=== PATIENT | female | born 1985 | race Caucasian/White ===

== ENCOUNTER 2016-11-22 04:21 | Emergency (ER) | payer OTHER ==
[2016-11-22 07:01] LABS: BASO # 0.2 K/mm3 (0.0-0.2); BASO % 1.7 % (0.0-1.0); EOS # 0.3 K/mm3 (0.0-0.50); EOS % 2.5 % (0.0-3.0); LARGE UNSTAINED CELL # 0.2 K/mm3 (0.0-0.4); LYMPH # 3.4 K/mm3 (1.5-4.5); LYMPH % 25.9 % (24.0-44.0); MEAN CORPUSCULAR HEMOGLOBIN 30.7 pg (27.0-33.0); MEAN CORPUSCULAR VOLUME 90.3 fl (80.0-96.0); MONO # 0.5 K/mm3 (0.0-0.8); MONO % 4.3 % (0.0-5.0); NEUTROPHILS # 7.7 K/mm3 (1.8-7.7); NEUTROPHILS % 63.6 % (36.0-66.0); PLATELET COUNT, AUTOMATED 372 k/mm3 (150-450); RED CELL DISTRIBUTION WIDTH 12.7 % (11.5-14.5); WHITE BLOOD COUNT 12.1 K/mm3 (4.0-10.0)
[2016-11-22 07:05] LABS: CONTROL LINE HCG INT CTR LINE PRESENT
[2016-11-22 07:12] LABS: ALBUMIN 3.8 GM/DL (3.2-5.2); ALKALINE PHOSPHATASE 84 U/L (45-117); ALT/SGPT 24 U/L (12-78); AMYLASE 43 U/L (25-115); ANION GAP 7 MEQ/L (8-16); AST/SGOT 14 U/L (15-37); BILIRUBIN,DIRECT < 0.1 MG/DL (0.0-0.2); BILIRUBIN,TOTAL 0.3 MG/DL (0.2-1.0); BLOOD UREA NITROGEN 13 MG/DL (7-18); CALCIUM LEVEL 8.9 MG/DL (8.5-10.1); CARBON DIOXIDE LEVEL 27 MEQ/L (21-32); CHLORIDE LEVEL 109 MEQ/L (98-107); CREATININE FOR GFR 0.73 MG/DL (0.55-1.02); GLOMERULAR FILTRATION RATE > 60.0 (>60); GLUCOSE, FASTING 89 MG/DL (70-105); SODIUM LEVEL 143 MEQ/L (136-145)
--- NOTE | 2016-11-22 08:51 | EDDOCDS ---
Physician Documentation [facility] Name: Aleida Oliva Age: 31 yrs Sex: Female : 1985 Arrival Date: 11/22/2016 Time: 04:21 Bed 9 Private MD: Gerda Henrandez NP Disposition: 11/22 08:40 I have independently interviewed and examined the patient, and I agree with the br1 investigation, diagnosis and treatment plan as documented by the Resident. Disposition: 11/22/16 08:26 Discharged to Home/Self Care. Impression: Nausea and vomiting. - Condition is Stable. - Discharge Instructions: Clear Liquid Diet, [id number]. - Medication Reconciliation, Local Pharmacy Hours form. - Follow up: Gerda Hernandez; When: Call to arrange an appointment; Reason: Recheck today's complaints, Continuance of care. - Problem is new. - Symptoms have improved. - Notes: You were evaluated in the emergency department for nausea and vomiting. Your laboratory results report no acute changes. Your urine wasnegative. Please consume clear fluids and follow the BRAT diet. Please schedule an appointment with Gerda Hernandez at your soonest convenience to discuss today's complaints. Historical: - Allergies: PENICILLINS (Hives); - Home Meds: 1. levothyroxine 50 mcg Oral cap 1 cap once daily - PMHx: Thyroid problem; - PSHx: none; - Social history: Smoking status: Patient states was never smoker of tobacco. No barriers to communication noted, The patient speaks fluent German, Speaks appropriately for age. - Family history: Not pertinent. - : The pt / caregiver states he / she is not on anticoagulants. Home medication list is obtained from the patient. - Exposure Risk Screening:: None identified. 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 8 in. (172.72 cm); 07:16 BP 137 / 89; Pulse 73; Resp 16; Pulse Ox 98% on R/A; Pain 4/10; dwg 08:36 BP 131 / 89; Pulse 80; Resp 17; Temp 98.1(O); Pulse Ox 99% on R/A; lr2 04:54 Body Mass Index 38.01 (113.40 kg, 172.72 cm) cz MDM: 06:26 [facility] Payment Agreement was scanned into [email or web address] and attached to record. hs2 06:40 Undress patient appropriately for examination ordered. oct 06:40 IV Saline Lock ordered. oct 06:41 Amylase Ordered. EDMS 06:41 Basic Metabolic Profile Ordered. EDMS 06:41 CBC with Diff Ordered. EDMS 06:41 HCG,Serum Qualitative Ordered. EDMS 06:41 Lipase Ordered. EDMS 06:41 Liver Profile Ordered. EDMS 06:41 NOTHING BY MOUTH+DIET ordered. EDMS 06:58 Financial registration complete. hs2 07:11 Urinalysis Ordered. EDMS 07:11 Urine Culture Ordered. EDMS 07:17 Ondansetron 4 mg IVP once ordered. jo4 07:17 Amylase Reviewed. jo4 07:18 Basic Metabolic Profile Reviewed. jo4 07:18 CBC with Diff Reviewed. jo4 07:19 Liver Profile Reviewed. jo4 07:19 HCG,Serum Qualitative Reviewed. jo4 07:19 Lipase Reviewed. jo4 08:25 Urinalysis Reviewed. jo4 08:40 ED course: Seen with resident, agree with findings. Complains of epigastric abdominal br1 pain, nausea, vomiting overnight, now resolved. Denies any further complaints now in ED. Feels better, wishes DC home. Declines antiemetic prescription. Will follow up with PCP, encourage clear liquids, advance diet as tolerated. Patient agrees with plan.. Administered Medications: 07:22 Not Given (Patient Refused): Ondansetron 4 mg IVP once dwg Signatures: Dispatcher MedHo EDSlava Man RN RN dwg Newman, Jill New, RN RN jan Zecher, Calvin, RN RN cz Roggie, Brian, MD MD brTamie Mobley RN RN Jeri Cortes, DO jo4 Laverne Nolasco, Reg Reg hs2 The chart was reviewed and I authenticate all verbal orders and agree with the evaluation and treatment provided.Attachments: 06:26 [facility] Payment Agreement hs2 MTDD
--- NOTE | 2016-11-22 08:51 | EDDOCDS ---
Nurse's Notes [facility] Name: Aleida Oliva Age: 31 yrs Sex: Female : 1985 Arrival Date: 11/22/2016 Time: 04:21 Bed 9 Private MD: Gerda Hernandez NP Diagnosis: Nausea and vomiting Presentation: 11/22 04:51 Presenting complaint: Patient states: she has had stomach pain since 2200 last night cz c/o weakness and shakiness ,loose stools. pt also states has a red spot on left lateral neck that is real itchy has been there for about a week. Risk factors: the patient reports no vaginal bleeding. Adult Sepsis Screening: The patient does not have new or worsening altered mentation. Patient's respiratory rate is less than 22. Systolic blood pressure is greater than 100. Patient has a qSOFA score of 0- Negative Sepsis Screen. Suicide/Homicide risk assessment- the patient denies having any suicidal and/or homicidal ideations and does not present with any other emotional, behavioral or mental health complaints. Status: Patient is not a service line layer or dependent. Transition of care: patient was not received from another setting of care. 04:51 Acuity: NELDA Level 3 cz 04:51 Method Of Arrival: Walkin/Carried/Asstd cz Triage Assessment: 04:54 General: Appears uncomfortable. Pain: Location: abdomen Pain currently is 8 out of 10 cz on a pain scale. At worst was 10 out of 10 on a pain scale. HIV screening NA for this visit Offered previously. 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 levothyroxine 50 mcg Oral cap 1 cap once daily - PMHx: Thyroid problem; - PSHx: none; - Social history: Smoking status: Patient states was never smoker of tobacco. No barriers to communication noted, The patient speaks fluent Armenian, Speaks appropriately for age. - Family history: Not pertinent. - : The pt / caregiver states he / she is not on anticoagulants. Home medication list is obtained from the patient. - Exposure Risk Screening:: None identified. Screenin:43 Screening information is obtained from the patient. Fall risk: No risks identified. ko2 Assistance ADL's: requires no assistance with activities of daily living. Abuse/DV Screen: The patient / caregiver reports he/she is: not in a situation that causes fear, pain or injury. Nutritional screening: No deficits noted. Advance Directives: Currently, there is no health care proxy. There is no active DNR order. There is no living will. There is no Power of Occupational Physician. home support is adequate. Assessment: 06:20 General: Appears in no apparent distress, comfortable, Behavior is appropriate for age, ko2 cooperative. Pain: Location: abdomen. Neurological: Level of Consciousness is awake, alert. Respiratory: Airway is patent Respiratory effort is even, unlabored. GI: Abdomen is non- distended obese, Bowel sounds present X 4 quads. Abd is soft and non tender. Derm: Skin is normal. 07:14 General: Appears in no apparent distress, comfortable, Behavior is cooperative, dwg pleasant, Report received from Tamie Salcedo RN, awake and alert, visiting with family member, ''a little'' mid to upper abdominal pain, states feeling better since meds. VSS.. Pain: Location: umbilical area, right upper quadrant and left upper quadrant Pain currently is 4 out of 10 on a pain scale. Neurological: Level of Consciousness is awake, alert, Oriented to person, place, time. Respiratory: Airway is patent Respiratory effort is even, unlabored, Respiratory pattern is regular, symmetrical, Breath sounds are clear bilaterally. GI: Abdomen is non- distended obese, Bowel sounds present X 4 quads. Abd is soft and non tender X 4 quads. 08:49 General: SL DC'ed. [facility] Vital Signs: 04:54 BP 147 / 91; Pulse 82; Resp 16; Temp 99.2(T); Pulse Ox 98% on R/A; Weight 113.4 kg; cz Height 5 ft. 8 in. (172.72 cm); 07:16 BP 137 / 89; Pulse 73; Resp 16; Pulse Ox 98% on R/A; Pain 4/10; dwg 08:36 BP 131 / 89; Pulse 80; Resp 17; Temp 98.1(O); Pulse Ox 99% on R/A; lr2 04:54 Body Mass Index 38.01 (113.40 kg, 172.72 cm) Vitals: 04:54 Log In Time: November 22, 2016 at 04:21. ED Course: 04:22 Patient visited by Raghu Gonsalez Reg. pm4 04:22 Gerda Hernandez is Private Physician. pm4 04:22 Patient moved to Waiting pm4 04:45 Patient moved to Triage 1 cz 04:53 Triage Initiated cz 04:57 Patient moved to Pre RCE cz 06:07 Tamie Salcedo,RN is Primary Nurse. ml3 06:07 Patient moved to 9 ml3 06:16 Patient visited by Tamie Salcedo,RADHA. ko2 06:26 [facility] [place] Agreement was scanned into [employer] and attached to record. hs2 06:44 Amylase Sent. mgs 06:44 Basic Metabolic Profile Sent. mgs 06:44 CBC with Diff Sent. mgs 06:44 HCG,Serum Qualitative Sent. mgs 06:44 Lipase Sent. mgs 06:44 Liver Profile Sent. mgs 06:44 Inserted saline lock: 20 gauge in left antecubital area and blood collected. The mgs patient tolerated the procedure well. 06:48 Jeri Forman DO [facility] jo4 06:49 Michael Liu MD is Attending Physician. jo4 06:57 Patient visited by Jeri Forman DO. jo4 06:57 Patient visited by Jeri Forman DO. jo4 07:17 Patient visited by Slava Parker RN. dwg 07:22 Urine Culture Sent. dwg 07:22 Urinalysis Sent. dwg 07:58 Patient visited by Michael Liu MD. br1 08:26 Gerda Hernandez is Referral Physician. jo4 08:38 Patient visited by Nargis Best. lr2 08:48 No procedures done that require assistance. dwg 08:49 The patient / caregiver is instructed regarding the plan of care and ED course. dwg 08:50 Patient visited by Slava Parker, RADHA. dwg Administered Medications: 07:22 Not Given (Patient Refused): Ondansetron 4 mg IVP once dwg Order Results: Lab Order: Amylase; SPEC'M 11/22/16 06:43 Test: AMYLASE; Value: 43; Range: 25-115; Units: U/L; Status: F Lab Order: Basic Metabolic Profile; SPEC'M 11/22/16 06:43 Test: GLUCOSE, FASTING; Value: 89; Range: 70-105; Units: MG/DL; Status: F Test: BLOOD UREA NITROGEN; Value: 13; Range: 7-18; Units: MG/DL; Status: F Test: CREATININE FOR GFR; Value: 0.73; Range: 0.55-1.02; Units: MG/DL; Status: F Test: SODIUM LEVEL; Range: 136-145; Units: MEQ/L; Status: I Test: POTASSIUM SERUM; Range: 3.5-5.1; Units: MEQ/L; Status: I Test: CHLORIDE LEVEL; Range: 98-107; Units: MEQ/L; Status: I Test: CARBON DIOXIDE LEVEL; Range: 21-32; Units: MEQ/L; Status: I Test: ANION GAP; Range: 8-16; Units: MEQ/L; Status: I Test: CALCIUM LEVEL; Range: 8.5-10.1; Units: MG/DL; Status: I Test: GLOMERULAR FILTRATION RATE; Value: > 60.0; Range: >60; Status: F Test: SODIUM LEVEL; Value: 143; Range: 136-145; Units: MEQ/L; Status: F Test: POTASSIUM SERUM; Value: 4.0; Range: 3.5-5.1; Units: MEQ/L; Status: F Test: CHLORIDE LEVEL; Value: 109; Range: 98-107; Abnormal: Above high normal; Units: MEQ/L; Status: F Test: CARBON DIOXIDE LEVEL; Value: 27; Range: 21-32; Units: MEQ/L; Status: F Test: ANION GAP; Value: 7; Range: 8-16; Abnormal: Below low normal; Units: MEQ/L; Status: F Test: CALCIUM LEVEL; Value: 8.9; Range: 8.5-10.1; Units: MG/DL; Status: F Test Note: ; Units are mL/min/1.73 m2 Chronic Kidney Disease Staging per NKF: Stage I & II GFR >=60 Normal to Mildly Decreased Stage III GFR 30-59 Moderately Decreased Stage IV GFR 15-29 Severely Decreased Stage V GFR <15 Very Little GFR Left ESRD GFR <15 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 Lab Order: CBC with Diff; SPEC'M 11/22/16 06:43 Test: WHITE BLOOD COUNT; Value: 12.1; Range: 4.0-10.0; Abnormal: Above high normal; Units: K/mm3; Status: F Test: RED BLOOD COUNT; Value: 4.60; Range: 4.00-5.40; Units: M/mm3; Status: F Test: HEMOGLOBIN; Value: 14.2; Range: 12.0-16.0; Units: g/dl; Status: F Test: HEMATOCRIT; Value: 41.6; Range: 36.0-47.0; Units: %; Status: F Test: MEAN CORPUSCULAR VOLUME; Value: 90.3; Range: 80.0-96.0; Units: fl; Status: F Test: MEAN CORPUSCULAR HEMOGLOBIN; Value: 30.7; Range: 27.0-33.0; Units: pg; Status: F Test: MEAN CORPUSCULAR HGB CONC; Value: 34.0; Range: 32.0-36.5; Units: g/dl; Status: F Test: RED CELL DISTRIBUTION WIDTH; Value: 12.7; Range: 11.5-14.5; Units: %; Status: F Test: PLATELET COUNT, AUTOMATED; Value: 372; Range: 150-450; Units: k/mm3; Status: F Test: NEUTROPHILS %; Value: 63.6; Range: 36.0-66.0; Units: %; Status: F Test: LYMPH %; Value: 25.9; Range: 24.0-44.0; Units: %; Status: F Test: MONO %; Value: 4.3; Range: 0.0-5.0; Units: %; Status: F Test: EOS %; Value: 2.5; Range: 0.0-3.0; Units: %; Status: F Test: BASO %; Value: 1.7; Range: 0.0-1.0; Abnormal: Above high normal; Units: %; Status: F Test: LARGE UNSTAINED CELL %; Value: 2.0; Range: 0.0-4.0; Units: %; Status: F Test: NEUTROPHILS #; Value: 7.7; Range: 1.8-7.7; Units: K/mm3; Status: F Test: LYMPH #; Value: 3.4; Range: 1.5-4.5; Units: K/mm3; Status: F Test: MONO #; Value: 0.5; Range: 0.0-0.8; Units: K/mm3; Status: F Test: EOS #; Value: 0.3; Range: 0.0-0.50; Units: K/mm3; Status: F Test: BASO #; Value: 0.2; Range: 0.0-0.2; Units: K/mm3; Status: F Test: LARGE UNSTAINED CELL #; Value: 0.2; Range: 0.0-0.4; Units: K/mm3; Status: F Lab Order: HCG,Serum Qualitative; [facility]' 11/22/16 06:43 Test: HCG, SERUM QUALITATIVE; Value: NEGATIVE; Range: NEGATIVE; Status: F Lab Order: Lipase; [facility] 11/22/16 06:43 Test: LIPASE; Value: 115; Range: 73-393; Units: U/L; Status: F Lab Order: Liver Profile; [facility] 11/22/16 06:43 Test: AST/SGOT; Value: 14; Range: 15-37; Abnormal: Below low normal; Units: U/L; Status: F Test: ALT/SGPT; Value: 24; Range: 12-78; Units: U/L; Status: F Test: ALKALINE PHOSPHATASE; Value: 84; Range: 45-117; Units: U/L; Status: F Test: BILIRUBIN,TOTAL; Value: 0.3; Range: 0.2-1.0; Units: MG/DL; Status: F Test: BILIRUBIN,DIRECT; Value: < 0.1; Range: 0.0-0.2; Units: MG/DL; Status: F Test: TOTAL PROTEIN; Value: 8.0; Range: 6.4-8.2; Units: GM/DL; Status: F Test: ALBUMIN; Value: 3.8; Range: 3.2-5.2; Units: GM/DL; Status: F Test: ALBUMIN/GLOBULIN RATIO; Value: 0.90; Range: 1.00-1.93; Abnormal: Below low normal; Status: F Lab Order: Urinalysis; [facility] 11/22/16 07:22 Test: APPEARANCE, URINE; Value: CLEAR; Range: CLEAR; Status: F Test: COLOR, URINE; Value: YELLOW; Range: YELLOW; Status: F Test: PH,URINE; Value: 5.0; Range: 5.0-9.0; Units: UNITS; Status: F Test: SPECIFIC GRAVITY URINE AUTO; Value: 1.025; Range: 1.002-1.035; Status: F Test: PROTEIN, URINE AUTO; Value: NEGATIVE; Range: NEGATIVE; Units: mg/dL; Status: F Test: GLUCOSE, URINE (UA) AUTO; Value: NEGATIVE; Range: NEGATIVE; Units: mg/dL; Status: F Test: KETONE, URINE AUTO; Value: NEGATIVE; Range: NEGATIVE; Units: mg/dL; Status: F Test: UROBILINOGEN, URINE AUTO; Value: 0.2; Range: 0.0-2.0; Units: mg/dL; Status: F Test: BILIRUBIN, URINE AUTO; Value: NEGATIVE; Range: NEGATIVE; Status: F Test: NITRITE, URINE AUTO; Value: NEGATIVE; Range: NEGATIVE; Status: F Test: LEUKOCYTE ESTERASE, URINE AUTO; Value: NEGATIVE; Range: NEGATIVE; Status: F Test: BLOOD, URINE BLOOD; Value: NEGATIVE; Range: NEGATIVE; Status: F Test: WBC, URINE AUTO; Value: 0; Range: 0-3; Units: /HPF; Status: F Test: RBC, URINE AUTO; Value: 2; Range: 0-3; Units: /HPF; Status: F Test: BACTERIA, URINE AUTO; Value: NEGATIVE; Range: NEGATIVE; Status: F Test: SQUAMOUS EPITHELIAL CELL UR AU; Value: 4; Range: 0-6; Units: /HPF; Status: F Test: MUCUS, URINE; Value: SMALL; Range: NEGATIVE; Status: F Test: HYALINE CAST, URINE AUTO; Value: 0; Range: 0-1; Units: /LPF; Status: F Outcome: 08:26 Discharge ordered by Provider. jo4 08:48 Discharge Assessment: Patient awake, alert and oriented x 3. No cognitive and/or dwg functional deficits noted. Patient verbalized understanding of disposition instructions. patient administered narcotics - no. The following High Risk Discharge criteria are identified: None. Discharged to home ambulatory, with family. Condition: good Condition: stable Condition: improved. 08:48 No special radiology studies were completed. Property sent home with patient. [facility] 08:50 Patient left the ED. dwg Signatures: Parker, SlavaRADHA fine RN, Calvin, RN RN cz Sailaja, ClariIrvingShobha, Braiding Machine Operator Unit ml3 Michael Liu MD MD br1 Tamie Salcedo RN RN ko2 Viral Lipscomb,RN RN mgs Jeri Forman, DO jo4 Laverne Nolasco, Reg Reg hs2 Raghu Gonsalez, Reg Reg pm4 Nargis Best lr2 Corrections: (The following items were deleted from the chart) 04:57 04:51 Presenting complaint: Patient states: she has had stomach pain since 2199 last cz night c/o weakness and shakiness ,loose stools cz MTDD
--- NOTE | 2016-11-24 09:51 | EDDOCDS ---
Nurse's Notes [facility] Name: Aleida Oliva Age: 31 yrs Sex: Female : 1985 Arrival Date: 11/22/2016 Time: 04:21 Bed 9 Private MD: Gerda Hernandez NP Diagnosis: Nausea and vomiting Presentation: 11/22 04:51 Presenting complaint: Patient states: she has had stomach pain since 2200 last night cz c/o weakness and shakiness ,loose stools. pt also states has a red spot on left lateral neck that is real itchy has been there for about a week. Risk factors: the patient reports no vaginal bleeding. Adult Sepsis Screening: The patient does not have new or worsening altered mentation. Patient's respiratory rate is less than 22. Systolic blood pressure is greater than 100. Patient has a qSOFA score of 0- Negative Sepsis Screen. Suicide/Homicide risk assessment- the patient denies having any suicidal and/or homicidal ideations and does not present with any other emotional, behavioral or mental health complaints. Status: Patient is not a services host or dependent. Transition of care: patient was not received from another setting of care. 04:51 Acuity: NELDA Level 3 cz 04:51 Method Of Arrival: Walkin/Carried/Asstd cz Triage Assessment: 04:54 General: Appears uncomfortable. Pain: Location: abdomen Pain currently is 8 out of 10 cz on a pain scale. At worst was 10 out of 10 on a pain scale. HIV screening NA for this visit Offered previously. 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 levothyroxine 50 mcg Oral cap 1 cap once daily - PMHx: Thyroid problem; - PSHx: none; - Social history: Smoking status: Patient states was never smoker of tobacco. No barriers to communication noted, The patient speaks fluent Greek, Speaks appropriately for age. - Family history: Not pertinent. - : The pt / caregiver states he / she is not on anticoagulants. Home medication list is obtained from the patient. - Exposure Risk Screening:: None identified. Screenin:43 Screening information is obtained from the patient. Fall risk: No risks identified. ko2 Assistance ADL's: requires no assistance with activities of daily living. Abuse/DV Screen: The patient / caregiver reports he/she is: not in a situation that causes fear, pain or injury. Nutritional screening: No deficits noted. Advance Directives: Currently, there is no health care proxy. There is no active DNR order. There is no living will. 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 home support is adequate. Assessment: 06:20 General: Appears in no apparent distress, comfortable, Behavior is appropriate for age, ko2 cooperative. Pain: Location: abdomen. Neurological: Level of Consciousness is awake, alert. Respiratory: Airway is patent Respiratory effort is even, unlabored. GI: Abdomen is non- distended obese, Bowel sounds present X 4 quads. Abd is soft and non tender. Derm: Skin is normal. 07:14 General: Appears in no apparent distress, comfortable, Behavior is cooperative, dwg pleasant, Report received from Tamie Salcedo RN, awake and alert, visiting with family member, ''a little'' mid to upper abdominal pain, states feeling better since meds. VSS.. Pain: Location: umbilical area, right upper quadrant and left upper quadrant Pain currently is 4 out of 10 on a pain scale. Neurological: Level of Consciousness is awake, alert, Oriented to person, place, time. Respiratory: Airway is patent Respiratory effort is even, unlabored, Respiratory pattern is regular, symmetrical, Breath sounds are clear bilaterally. GI: Abdomen is non- distended obese, Bowel sounds present X 4 quads. Abd is soft and non tender X 4 quads. 08:49 General: SL DC'ed. [facility] Vital Signs: 04:54 BP 147 / 91; Pulse 82; Resp 16; Temp 99.2(T); Pulse Ox 98% on R/A; Weight 113.4 kg; cz Height 5 ft. 8 in. (172.72 cm); 07:16 BP 137 / 89; Pulse 73; Resp 16; Pulse Ox 98% on R/A; Pain 4/10; dwg 08:36 BP 131 / 89; Pulse 80; Resp 17; Temp 98.1(O); Pulse Ox 99% on R/A; lr2 04:54 Body Mass Index 38.01 (113.40 kg, 172.72 cm) Vitals: 04:54 Log In Time: November 22, 2016 at 04:21. cz ED Course: 04:22 Patient visited by Raghu Gonsalez Reg. pm4 04:22 Gerda Hernandez is Private Physician. pm4 04:22 Patient moved to Waiting pm4 04:45 Patient moved to Triage 1 cz 04:53 Triage Initiated cz 04:57 Patient moved to Pre RCE cz 06:07 Tamie Salcedo,RN is Primary Nurse. ml3 06:07 Patient moved to 9 ml3 06:16 Patient visited by Tamie Salcedo,RADHA. ko2 06:26 [facility] Payment Agreement was scanned into [employer] and attached to record. hs2 06:44 Amylase Sent. mgs 06:44 Basic Metabolic Profile Sent. mgs 06:44 CBC with Diff Sent. mgs 06:44 HCG,Serum Qualitative Sent. mgs 06:44 Lipase Sent. mgs 06:44 Liver Profile Sent. mgs 06:44 Inserted saline lock: 20 gauge in left antecubital area and blood collected. The mgs patient tolerated the procedure well. 06:48 [facility] jo4 06:49 Michael Liu MD is Attending Physician. jo4 06:57 Patient visited by Jeri Forman DO. jo4 06:57 Patient visited by Jeri Forman DO. jo4 07:17 Patient visited by Slava Parker RN. dwg 07:22 Urine Culture Sent. dwg 07:22 Urinalysis Sent. dwg 07:58 Patient visited by Michael Liu MD. br1 08:26 Gerda Hernandez is Referral Physician. jo4 08:38 Patient visited by Nargis Best. lr2 08:48 No procedures done that require assistance. dwg 08:49 The patient / caregiver is instructed regarding the plan of care and ED course. dwg 08:50 Patient visited by Slava Parker, RADHA. dwg 14:31 T-Sheet-- Draft Copy was scanned into [employer] and attached to record. gb Administered Medications: 07:22 Not Given (Patient Refused): Ondansetron 4 mg IVP once dwg Order Results: Lab Order: Amylase; SPEC'M 11/22/16 06:43 Test: AMYLASE; Value: 43; Range: 25-115; Units: U/L; Status: F Lab Order: Basic Metabolic Profile; SPEC'M 11/22/16 06:43 Test: GLUCOSE, FASTING; Value: 89; Range: 70-105; Units: MG/DL; Status: F Test: BLOOD UREA NITROGEN; Value: 13; Range: 7-18; Units: MG/DL; Status: F Test: CREATININE FOR GFR; Value: 0.73; Range: 0.55-1.02; Units: MG/DL; Status: F Test: SODIUM LEVEL; Range: 136-145; Units: MEQ/L; Status: I Test: POTASSIUM SERUM; Range: 3.5-5.1; Units: MEQ/L; Status: I Test: CHLORIDE LEVEL; Range: 98-107; Units: MEQ/L; Status: I Test: CARBON DIOXIDE LEVEL; Range: 21-32; Units: MEQ/L; Status: I Test: ANION GAP; Range: 8-16; Units: MEQ/L; Status: I Test: CALCIUM LEVEL; Range: 8.5-10.1; Units: MG/DL; Status: I Test: GLOMERULAR FILTRATION RATE; Value: > 60.0; Range: >60; Status: F Test: SODIUM LEVEL; Value: 143; Range: 136-145; Units: MEQ/L; Status: F Test: POTASSIUM SERUM; Value: 4.0; Range: 3.5-5.1; Units: MEQ/L; Status: F Test: CHLORIDE LEVEL; Value: 109; Range: 98-107; Abnormal: Above high normal; Units: MEQ/L; Status: F Test: CARBON DIOXIDE LEVEL; Value: 27; Range: 21-32; Units: MEQ/L; Status: F Test: ANION GAP; Value: 7; Range: 8-16; Abnormal: Below low normal; Units: MEQ/L; Status: F Test: CALCIUM LEVEL; Value: 8.9; Range: 8.5-10.1; Units: MG/DL; Status: F Test Note: ; Units are mL/min/1.73 m2 Chronic Kidney Disease Staging per NKF: Stage I & II GFR >=60 Normal to Mildly Decreased Stage III GFR 30-59 Moderately Decreased Stage IV GFR 15-29 Severely Decreased Stage V GFR <15 Very Little GFR Left ESRD GFR <15 on [employer] INSPECTOR Lab Order: CBC with Diff; SPEC'M 11/22/16 06:43 Test: WHITE BLOOD COUNT; Value: 12.1; Range: 4.0-10.0; Abnormal: Above high normal; Units: K/mm3; Status: F Test: RED BLOOD COUNT; Value: 4.60; Range: 4.00-5.40; Units: M/mm3; Status: F Test: HEMOGLOBIN; Value: 14.2; Range: 12.0-16.0; Units: g/dl; Status: F Test: HEMATOCRIT; Value: 41.6; Range: 36.0-47.0; Units: %; Status: F Test: MEAN CORPUSCULAR VOLUME; Value: 90.3; Range: 80.0-96.0; Units: fl; Status: F Test: MEAN CORPUSCULAR HEMOGLOBIN; Value: 30.7; Range: 27.0-33.0; Units: pg; Status: F Test: MEAN CORPUSCULAR HGB CONC; Value: 34.0; Range: 32.0-36.5; Units: g/dl; Status: F Test: RED CELL DISTRIBUTION WIDTH; Value: 12.7; Range: 11.5-14.5; Units: %; Status: F Test: PLATELET COUNT, AUTOMATED; Value: 372; Range: 150-450; Units: k/mm3; Status: F Test: NEUTROPHILS %; Value: 63.6; Range: 36.0-66.0; Units: %; Status: F Test: LYMPH %; Value: 25.9; Range: 24.0-44.0; Units: %; Status: F Test: MONO %; Value: 4.3; Range: 0.0-5.0; Units: %; Status: F Test: EOS %; Value: 2.5; Range: 0.0-3.0; Units: %; Status: F Test: BASO %; Value: 1.7; Range: 0.0-1.0; Abnormal: Above high normal; Units: %; Status: F Test: LARGE UNSTAINED CELL %; Value: 2.0; Range: 0.0-4.0; Units: %; Status: F Test: NEUTROPHILS #; Value: 7.7; Range: 1.8-7.7; Units: K/mm3; Status: F Test: LYMPH #; Value: 3.4; Range: 1.5-4.5; Units: K/mm3; Status: F Test: MONO #; Value: 0.5; Range: 0.0-0.8; Units: K/mm3; Status: F Test: EOS #; Value: 0.3; Range: 0.0-0.50; Units: K/mm3; Status: F Test: BASO #; Value: 0.2; Range: 0.0-0.2; Units: K/mm3; Status: F Test: LARGE UNSTAINED CELL #; Value: 0.2; Range: 0.0-0.4; Units: K/mm3; Status: F Lab Order: HCG,Serum Qualitative; [facility] 11/22/16 06:43 Test: HCG, SERUM QUALITATIVE; Value: NEGATIVE; Range: NEGATIVE; Status: F Lab Order: Lipase; [facility] 11/22/16 06:43 Test: LIPASE; Value: 115; Range: 73-393; Units: U/L; Status: F Lab Order: Liver Profile; [facility] 11/22/16 06:43 Test: AST/SGOT; Value: 14; Range: 15-37; Abnormal: Below low normal; Units: U/L; Status: F Test: ALT/SGPT; Value: 24; Range: 12-78; Units: U/L; Status: F Test: ALKALINE PHOSPHATASE; Value: 84; Range: 45-117; Units: U/L; Status: F Test: BILIRUBIN,TOTAL; Value: 0.3; Range: 0.2-1.0; Units: MG/DL; Status: F Test: BILIRUBIN,DIRECT; Value: < 0.1; Range: 0.0-0.2; Units: MG/DL; Status: F Test: TOTAL PROTEIN; Value: 8.0; Range: 6.4-8.2; Units: GM/DL; Status: F Test: ALBUMIN; Value: 3.8; Range: 3.2-5.2; Units: GM/DL; Status: F Test: ALBUMIN/GLOBULIN RATIO; Value: 0.90; Range: 1.00-1.93; Abnormal: Below low normal; Status: F Lab Order: Urinalysis; [facility] 11/22/16 07:22 Test: APPEARANCE, URINE; Value: CLEAR; Range: CLEAR; Status: F Test: COLOR, URINE; Value: YELLOW; Range: YELLOW; Status: F Test: PH,URINE; Value: 5.0; Range: 5.0-9.0; Units: UNITS; Status: F Test: SPECIFIC GRAVITY URINE AUTO; Value: 1.025; Range: 1.002-1.035; Status: F Test: PROTEIN, URINE AUTO; Value: NEGATIVE; Range: NEGATIVE; Units: mg/dL; Status: F Test: GLUCOSE, URINE (UA) AUTO; Value: NEGATIVE; Range: NEGATIVE; Units: mg/dL; Status: F Test: KETONE, URINE AUTO; Value: NEGATIVE; Range: NEGATIVE; Units: mg/dL; Status: F Test: UROBILINOGEN, URINE AUTO; Value: 0.2; Range: 0.0-2.0; Units: mg/dL; Status: F Test: BILIRUBIN, URINE AUTO; Value: NEGATIVE; Range: NEGATIVE; Status: F Test: NITRITE, URINE AUTO; Value: NEGATIVE; Range: NEGATIVE; Status: F Test: LEUKOCYTE ESTERASE, URINE AUTO; Value: NEGATIVE; Range: NEGATIVE; Status: F Test: BLOOD, URINE BLOOD; Value: NEGATIVE; Range: NEGATIVE; Status: F Test: WBC, URINE AUTO; Value: 0; Range: 0-3; Units: /HPF; Status: F Test: RBC, URINE AUTO; Value: 2; Range: 0-3; Units: /HPF; Status: F Test: BACTERIA, URINE AUTO; Value: NEGATIVE; Range: NEGATIVE; Status: F Test: SQUAMOUS EPITHELIAL CELL UR AU; Value: 4; Range: 0-6; Units: /HPF; Status: F Test: MUCUS, URINE; Value: SMALL; Range: NEGATIVE; Status: F Test: HYALINE CAST, URINE AUTO; Value: 0; Range: 0-1; Units: /LPF; Status: F Lab Order: Urine Culture; SPEC'M 11/22/16 07:22 Test: URINE CULTURE; Value: <EXTERNAL COMMENT eCWMed> FULL REPORT IN LAB NOTES (eCW and Medent).; Status: F Test: URINE CULTURE; Value: URINE CULTURE RESULT NO GROWTH CLINICAL SIGNIFICANCE 1 ORGANISM; Status: F Outcome: 08:26 Discharge ordered by Provider. jo4 08:48 Discharge Assessment: Patient awake, alert and oriented x 3. No cognitive and/or dwg functional deficits noted. Patient verbalized understanding of disposition instructions. patient administered narcotics - no. The following High Risk Discharge criteria are identified: None. Discharged to home ambulatory, with family. Condition: good Condition: stable Condition: improved. 08:48 No special radiology studies were completed. Property sent home with patient. [facility] 08:50 Patient left the ED. dwg Signatures: Slava Parker RN RN dwg Johnnie Sin RN RN cz July Rivers, Reg Reg gb Sailaja ClariIrvingShobha, Director [facility] ml3 Michael Liu MD MD br1 Tamie SalcedoRN RN ko2 Viral Lipscomb,RN RN mgs Jeri Forman DO DO jo4 Laverne Nolasco, Reg Reg hs2 Raghu Gonsalez, Reg Reg pm4 Nargis Best lr2 Corrections: (The following items were deleted from the chart) 04:57 04:51 Presenting complaint: Patient states: she has had stomach pain since 2200 last cz night c/o weakness and shakiness ,loose stools cz Chart Complete MTDD
--- NOTE | 2016-11-24 09:51 | EDDOCDS ---
Physician Documentation [facility] Name: Aleida Oliva Age: 31 yrs Sex: Female : 1985 Arrival Date: 11/22/2016 Time: 04:21 Bed 9 Private MD: Gerda Hernandez NP Disposition: 11/22 08:40 I have independently interviewed and examined the patient, and I agree with the br1 investigation, diagnosis and treatment plan as documented by the Resident. Disposition: 11/22/16 08:26 Discharged to Home/Self Care. Impression: Nausea and vomiting. - Condition is Stable. - Discharge Instructions: Clear Liquid Diet, [id number]. - Medication Reconciliation, Local Pharmacy Hours form. - Follow up: Gerda Hernandez; When: Call to arrange an appointment; Reason: Recheck today's complaints, Continuance of care. - Problem is new. - Symptoms have improved. - Notes: You were evaluated in the emergency department for nausea and vomiting. Your laboratory results report no acute changes. Your urine wasnegative. Please consume clear fluids and follow the BRAT diet. Please schedule an appointment with Gerda Hernandez at your soonest convenience to discuss today's complaints. Historical: - Allergies: PENICILLINS (Hives); - Home Meds: 1. levothyroxine 50 mcg Oral cap 1 cap once daily - PMHx: Thyroid problem; - PSHx: none; - Social history: Smoking status: Patient states was never smoker of tobacco. No barriers to communication noted, The patient speaks fluent Kinyarwanda, Speaks appropriately for age. - Family history: Not pertinent. - : The pt / caregiver states he / she is not on anticoagulants. Home medication list is obtained from the patient. - Exposure Risk Screening:: None identified. 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 8 in. (172.72 cm); 07:16 BP 137 / 89; Pulse 73; Resp 16; Pulse Ox 98% on R/A; Pain 4/10; dwg 08:36 BP 131 / 89; Pulse 80; Resp 17; Temp 98.1(O); Pulse Ox 99% on R/A; lr2 04:54 Body Mass Index 38.01 (113.40 kg, 172.72 cm) cz MDM: 06:26 [facility] Payment Agreement was scanned into [employer] and attached to record. hs2 06:40 Undress patient appropriately for examination ordered. oct 06:40 IV Saline Lock ordered. oct 06:41 Amylase Ordered. EDMS 06:41 Basic Metabolic Profile Ordered. EDMS 06:41 CBC with Diff Ordered. EDMS 06:41 HCG,Serum Qualitative Ordered. EDMS 06:41 Lipase Ordered. EDMS 06:41 Liver Profile Ordered. EDMS 06:41 NOTHING BY MOUTH+DIET ordered. EDMS 06:58 Financial registration complete. hs2 07:11 Urinalysis Ordered. EDMS 07:11 Urine Culture Ordered. EDMS 07:17 Ondansetron 4 mg IVP once ordered. jo4 07:17 Amylase Reviewed. jo4 07:18 Basic Metabolic Profile Reviewed. jo4 07:18 CBC with Diff Reviewed. jo4 07:19 Liver Profile Reviewed. jo4 07:19 HCG,Serum Qualitative Reviewed. jo4 07:19 Lipase Reviewed. jo4 08:25 Urinalysis Reviewed. jo4 08:40 ED course: Seen with resident, agree with findings. Complains of epigastric abdominal br1 pain, nausea, vomiting overnight, now resolved. Denies any further complaints now in ED. Feels better, wishes DC home. Declines antiemetic prescription. Will follow up with PCP, encourage clear liquids, advance diet as tolerated. Patient agrees with plan.. 14:31 T-Sheet-- Draft Copy was scanned into [employer] and attached to record. gb Administered Medications: 07:22 Not Given (Patient Refused): Ondansetron 4 mg IVP once dwg Signatures: Dispatcher [employer] EDMS Slava Parker RN RN dwg Newman, Jill New, RN RN jan Zecher, Calvin, RN RN cz Barnhardt, Gloria, Reg Reg gb Michael Liu MD MD br1 Tamie Salcedo RN RN ko2 Jeri Forman, DO jo4 Laverne Nolasco, Reg Reg hs2 The chart was reviewed and I authenticate all verbal orders and agree with the evaluation and treatment provided.Attachments: 06:26 [facility] Payment Agreement hs2 14:31 T-Sheet-- Draft Copy gb Chart Complete MTDD
--- NOTE | 2016-11-24 09:51 | EDDOCDS ---
Physician Documentation [facility] Name: Aleida Oliva Age: 31 yrs Sex: Female : 1985 Arrival Date: 11/22/2016 Time: 04:21 Bed 9 Private MD: Gerda Hernandez NP Disposition: 11/22 08:40 I have independently interviewed and examined the patient, and I agree with the br1 investigation, diagnosis and treatment plan as documented by the Resident. Disposition: 11/22/16 08:26 Discharged to Home/Self Care. Impression: Nausea and vomiting. - Condition is Stable. - Discharge Instructions: Clear Liquid Diet, [id number]. - Medication Reconciliation, Local Pharmacy Hours form. - Follow up: Gerda Hernandez; When: Call to arrange an appointment; Reason: Recheck today's complaints, Continuance of care. - Problem is new. - Symptoms have improved. - Notes: You were evaluated in the emergency department for nausea and vomiting. Your laboratory results report no acute changes. Your urine wasnegative. Please consume clear fluids and follow the BRAT diet. Please schedule an appointment with Gerda Hernandez at your soonest convenience to discuss today's complaints. Historical: - Allergies: PENICILLINS (Hives); - Home Meds: 1. levothyroxine 50 mcg Oral cap 1 cap once daily - PMHx: Thyroid problem; - PSHx: none; - Social history: Smoking status: Patient states was never smoker of tobacco. No barriers to communication noted, The patient speaks fluent Kinyarwanda, Speaks appropriately for age. - Family history: Not pertinent. - : The pt / caregiver states he / she is not on anticoagulants. Home medication list is obtained from the patient. - Exposure Risk Screening:: None identified. 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 8 in. (172.72 cm); 07:16 BP 137 / 89; Pulse 73; Resp 16; Pulse Ox 98% on R/A; Pain 4/10; dwg 08:36 BP 131 / 89; Pulse 80; Resp 17; Temp 98.1(O); Pulse Ox 99% on R/A; lr2 04:54 Body Mass Index 38.01 (113.40 kg, 172.72 cm) cz MDM: 06:26 [facility] Payment Agreement was scanned into [employer] and attached to record. hs2 06:40 Undress patient appropriately for examination ordered. oct 06:40 IV Saline Lock ordered. oct 06:41 Amylase Ordered. EDMS 06:41 Basic Metabolic Profile Ordered. EDMS 06:41 CBC with Diff Ordered. EDMS 06:41 HCG,Serum Qualitative Ordered. EDMS 06:41 Lipase Ordered. EDMS 06:41 Liver Profile Ordered. EDMS 06:41 NOTHING BY MOUTH+DIET ordered. EDMS 06:58 Financial registration complete. hs2 07:11 Urinalysis Ordered. EDMS 07:11 Urine Culture Ordered. EDMS 07:17 Ondansetron 4 mg IVP once ordered. jo4 07:17 Amylase Reviewed. jo4 07:18 Basic Metabolic Profile Reviewed. jo4 07:18 CBC with Diff Reviewed. jo4 07:19 Liver Profile Reviewed. jo4 07:19 HCG,Serum Qualitative Reviewed. jo4 07:19 Lipase Reviewed. jo4 08:25 Urinalysis Reviewed. jo4 08:40 ED course: Seen with resident, agree with findings. Complains of epigastric abdominal br1 pain, nausea, vomiting overnight, now resolved. Denies any further complaints now in ED. Feels better, wishes DC home. Declines antiemetic prescription. Will follow up with PCP, encourage clear liquids, advance diet as tolerated. Patient agrees with plan.. 14:31 T-Sheet-- Draft Copy was scanned into [employer] and attached to record. gb Administered Medications: 07:22 Not Given (Patient Refused): Ondansetron 4 mg IVP once dwg Signatures: Dispatcher [employer] EDMS Slava Parker RN RN dwg Newman, Jill New, RN RN jan Zecher, Calvin, RN RN cz Barnhardt, Gloria, Reg Reg gb Michael Liu MD MD br1 Tamie Salcedo RN RN ko2 Jeri Forman, DO jo4 Laverne Nolasco, Reg Reg hs2 The chart was reviewed and I authenticate all verbal orders and agree with the evaluation and treatment provided.Attachments: 06:26 [facility] Payment Agreement hs2 14:31 T-Sheet-- Draft Copy gb Chart Complete MTDD
== END 2016-11-22 08:50 | disposition home or self-care (01) ==
LOC: M ED 04:21
DX: R11.2 Nausea with vomiting, unspecified (principal); E07.9 Disorder of thyroid, unspecified; Z79.899 Other long term (current) drug therapy; Z88.0 Allergy status to penicillin

== ENCOUNTER → 2016-12-07 | Outpatient (REF) | payer BC, MEDICAID, OTHER ==
[2016-12-07 11:51] LABS: BASO # 0.1 K/mm3 (0.0-0.2); BASO % 0.7 % (0.0-1.0); EOS # 0.2 K/mm3 (0.0-0.50); EOS % 3.1 % (0.0-3.0); LARGE UNSTAINED CELL # 0.1 K/mm3 (0.0-0.4); LARGE UNSTAINED CELL % 1.6 % (0.0-4.0); LYMPH # 3.2 K/mm3 (1.5-4.5); LYMPH % 38.7 % (24.0-44.0); MEAN CORPUSCULAR HEMOGLOBIN 30.7 pg (27.0-33.0); MEAN CORPUSCULAR HGB CONC 33.9 g/dl (32.0-36.5); MEAN CORPUSCULAR VOLUME 90.6 fl (80.0-96.0); MONO # 0.5 K/mm3 (0.0-0.8); MONO % 6.7 % (0.0-5.0); NEUTROPHILS # 3.9 K/mm3 (1.8-7.7); NEUTROPHILS % 49.1 % (36.0-66.0); PLATELET COUNT, AUTOMATED 347 k/mm3 (150-450); RED CELL DISTRIBUTION WIDTH 12.4 % (11.5-14.5); WHITE BLOOD COUNT 7.9 K/mm3 (4.0-10.0)
[2016-12-07 13:03] LABS: ANION GAP 8 MEQ/L (8-16); BLOOD UREA NITROGEN 17 MG/DL (7-18); CALCIUM LEVEL 9.4 MG/DL (8.5-10.1); CARBON DIOXIDE LEVEL 28 MEQ/L (21-32); CHLORIDE LEVEL 108 MEQ/L (98-107); CREATININE FOR GFR 0.77 MG/DL (0.55-1.02); FREE T4 1.22 NG/DL (0.76-1.46); GLOMERULAR FILTRATION RATE > 60.0 (>60); GLUCOSE, FASTING 94 MG/DL (70-105); POTASSIUM SERUM 4.5 MEQ/L (3.5-5.1); SODIUM LEVEL 144 MEQ/L (136-145)
== END | disposition home or self-care (01) ==
LOC: M SFHCPLAZ 09:45
PROVIDERS: ATTEND Nurse Practitioner Family
DX: K52.9 Noninfective gastroenteritis and colitis, unspecified (principal); E03.9 Hypothyroidism, unspecified

== ENCOUNTER 2017-01-31 17:14 | Emergency (ER) | payer BC, MEDICAID, OTHER ==
[~2017-01-31] VITALS: Ht 172.7 cm; Wt 113.4 kg
[2017-01-31] MEDS ORDERED: LEVO50TA5 PO (17:23)
[2017-01-31 19:34] VITALS: BP 133/96
== END 2017-01-31 19:47 | disposition home or self-care (01) ==
LOC: M ED 18:54
DX: R20.9 Unspecified disturbances of skin sensation (principal); F41.9 Anxiety disorder, unspecified; E03.9 Hypothyroidism, unspecified; Z79.899 Other long term (current) drug therapy; Z88.0 Allergy status to penicillin

== ENCOUNTER 2017-05-03 02:38 | Emergency (ER) | payer MEDICAID, OTHER ==
[~2017-05-03] VITALS: Ht 172.7 cm; Wt 113.6 kg
[~2017-05-03 02:38] MED LIST: LEVO50TA5 PO
[2017-05-03 02:50] VITALS: BP 140/90
[2017-05-03] MEDS ORDERED: FLON1SPR (05:51)
[2017-05-03] MEDS ORDERED: ALBUTEROL 90 MCG/ACT 8GM HFA INHALER INH ONE (06:00)
== END 2017-05-03 06:34 | disposition home or self-care (01) ==
LOC: M ED 02:38
DX: J30.9 Allergic rhinitis, unspecified (principal); Z88.0 Allergy status to penicillin; Z79.899 Other long term (current) drug therapy

== ENCOUNTER 2017-05-05 15:45 | Emergency (ER) | payer OTHER ==
[~2017-05-05] VITALS: Ht 172.7 cm; Wt 129.1 kg
[~2017-05-05 15:45] MED LIST changes: +FLON1SPR
[2017-05-05] MEDS ORDERED: ALBU17IN INH (15:52)
[2017-05-05 16:43] LABS: BASO # 0.1 K/mm3 (0.0-0.2); BASO % 0.7 % (0.0-1.0); EOS # 0.3 K/mm3 (0.0-0.50); EOS % 4.2 % (0.0-3.0); LARGE UNSTAINED CELL # 0.1 K/mm3 (0.0-0.4); LARGE UNSTAINED CELL % 1.4 % (0.0-4.0); LYMPH % 22.6 % (24.0-44.0); MEAN CORPUSCULAR HEMOGLOBIN 31.4 pg (27.0-33.0); MEAN CORPUSCULAR HGB CONC 34.5 g/dl (32.0-36.5); MEAN CORPUSCULAR VOLUME 91.1 fl (80.0-96.0); MONO # 0.4 K/mm3 (0.0-0.8); MONO % 4.5 % (0.0-5.0); NEUTROPHILS # 5.4 K/mm3 (1.8-7.7); NEUTROPHILS % 66.6 % (36.0-66.0); PLATELET COUNT, AUTOMATED 400 k/mm3 (150-450); RED CELL DISTRIBUTION WIDTH 12.4 % (11.5-14.5); WHITE BLOOD COUNT 8.1 K/mm3 (4.0-10.0)
--- NOTE | 2017-05-05 17:11 | REP ---
Chest two views HISTORY: Abdominal pain Comparison: 05/30/2013 The lungs are clear. The heart is normal in size. The pulmonary vasculature is normal in appearance. The bony structure is intact. IMPRESSION: No acute disease. Signed by Cristobal Tee MD 05/05/2017 05:02 P
[2017-05-05 17:17] LABS: ALBUMIN 3.7 GM/DL (3.2-5.2); ALBUMIN/GLOBULIN RATIO 1.03 (1.00-1.93); ALKALINE PHOSPHATASE 83 U/L (45-117); ALT/SGPT 22 U/L (12-78); AMYLASE 37 U/L (25-115); ANION GAP 5 MEQ/L (8-16); AST/SGOT 9 U/L (15-37); BILIRUBIN,DIRECT 0.1 MG/DL (0.0-0.2); BILIRUBIN,TOTAL 0.8 MG/DL (0.2-1.0); BLOOD UREA NITROGEN 11 MG/DL (7-18); CALCIUM LEVEL 9.1 MG/DL (8.5-10.1); CARBON DIOXIDE LEVEL 28 MEQ/L (21-32); CHLORIDE LEVEL 106 MEQ/L (98-107); CREATININE FOR GFR 0.73 MG/DL (0.55-1.02); GLOMERULAR FILTRATION RATE > 60.0 (>60); GLUCOSE, FASTING 85 MG/DL (70-105); POTASSIUM SERUM 4.4 MEQ/L (3.5-5.1); SODIUM LEVEL 139 MEQ/L (136-145); TOTAL PROTEIN 7.3 GM/DL (6.4-8.2)
[2017-05-05] MEDS ORDERED: NAPR500T PO (17:38)
[2017-05-05] MEDS ORDERED: LOMO2.5T PO (17:38)
[2017-05-05 17:40] VITALS: BP 132/93
== END 2017-05-05 17:55 | disposition home or self-care (01) ==
LOC: M ED 15:45
DX: R07.89 Other chest pain (principal); R19.7 Diarrhea, unspecified; J06.9 Acute upper respiratory infection, unspecified; E66.9 Obesity, unspecified; Z88.0 Allergy status to penicillin; Z79.899 Other long term (current) drug therapy

== ENCOUNTER 2017-06-20 03:17 | Emergency (ER) | payer OTHER ==
[~2017-06-20] VITALS: Ht 172.7 cm; Wt 113.6 kg
[~2017-06-20 03:17] MED LIST changes: +ALBU17IN INH; +LOMO2.5T PO; +NAPR500T PO
[2017-06-20] MEDS ORDERED: CEFT250S PO (03:28)
[2017-06-20] MEDS ORDERED: ACETAMINOPHEN 325 MG TAB PO ONE (06:30)
[2017-06-20] MEDS ORDERED: SUDA30TA PO (06:31)
[2017-06-20] MEDS ORDERED: TYLE325T5 PO (06:31)
[2017-06-20] MEDS ORDERED: MUCI600T37 PO (06:31)
[2017-06-20] MEDS ORDERED: FLON1SPR (06:31)
[2017-06-20 06:59] VITALS: BP 142/110
== END 2017-06-20 07:02 | disposition home or self-care (01) ==
LOC: M ED 03:17
DX: J00 Acute nasopharyngitis [common cold] (principal); E03.9 Hypothyroidism, unspecified; Z88.0 Allergy status to penicillin; Z79.899 Other long term (current) drug therapy

== ENCOUNTER 2017-06-21 21:31 | Emergency (ER) | payer OTHER ==
[~2017-06-21] VITALS: Ht 172.7 cm; Wt 131.0 kg
[~2017-06-21 21:31] MED LIST changes: +CEFT250S PO; +MUCI600T37 PO; +SUDA30TA PO; +TYLE325T5 PO
[2017-06-21 21:32] VITALS: BP 138/90
--- NOTE | 2017-06-21 23:50 | REPUSA ---
Clinical statement: Pain, swelling. Findings: Venous Doppler imaging of the right upper extremity was performed. The internal jugular vei n compresses normally and demonstrates normal color Doppler flow. Normal venous wave forms are seen w ithin the subclavian vein. The axillary, brachial, and basilic veins compress normally and demonstrat e normal color Doppler flow. Normal augmentation is seen. Impression: No evidence of deep vein thrombosis in the right upper extremity.
== END 2017-06-21 22:59 | disposition home or self-care (01) ==
LOC: M ED 21:31
DX: M79.601 Pain in right arm (principal); E03.9 Hypothyroidism, unspecified; Z79.899 Other long term (current) drug therapy; Z88.0 Allergy status to penicillin

== ENCOUNTER → 2017-06-30 | Outpatient (REF) | payer OTHER ==
[~2017-06-30] MED LIST changes: +PRIL20CA9 PO
== END ==
LOC: M SFHCPLAZ 16:53
PROVIDERS: ATTEND Nurse Practitioner Family
DX: R30.0 Dysuria (principal)

== ENCOUNTER 2017-07-18 03:52 | Emergency (ER) | payer OTHER ==
[~2017-07-18] VITALS: Ht 172.7 cm; Wt 113.6 kg
[~2017-07-18 03:52] MED LIST changes: -PRIL20CA9 PO
[2017-07-18 05:44] VITALS: BP 131/93
[2017-07-19 10:56] LABS: HEPATITIS B SURFACE ANTIBODY POSITIVE (POSITIVE)
== END 2017-07-18 06:02 | disposition home or self-care (01) ==
LOC: M ED 03:52
DX: Z77.21 Contact with and (suspected) exposure to potentially hazardous body fluids (principal)

== ENCOUNTER 2017-07-23 03:05 | Emergency (ER) | payer OTHER ==
[~2017-07-23] VITALS: Ht 172.7 cm; Wt 113.6 kg
[2017-07-23] MEDS ORDERED: PRIL20CA9 PO (06:11)
[2017-07-23 06:16] VITALS: BP 140/98
--- NOTE | 2017-07-23 15:09 | ECGEPIP ---
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
== END 2017-07-23 06:40 | disposition home or self-care (01) ==
LOC: M ED 03:05
DX: K21.0 Gastro-esophageal reflux disease with esophagitis (principal); E03.9 Hypothyroidism, unspecified; Z79.899 Other long term (current) drug therapy; Z88.0 Allergy status to penicillin

== ENCOUNTER → 2017-08-14 | Outpatient (REF) | payer OTHER ==
[~2017-08-14] MED LIST changes: +PRIL20CA9 PO
[2017-08-14 14:00] LABS: FREE T4 1.16 NG/DL (0.76-1.46)
== END ==
LOC: M SFHCPLAZ 11:03
PROVIDERS: ATTEND Physician Assistant Medical
DX: E03.9 Hypothyroidism, unspecified (principal)

== ENCOUNTER 2017-10-31 20:18 | Emergency (ER) | payer OTHER ==
[2017-11-01] MEDS: NS 1,000 ML IV (00:30)
[2017-11-01] MEDS: ONDANSETRON 4MG/2ML VIAL (J2405) IV (00:30)
[2017-11-01] MEDS: GI COCKTAIL 50ML BTL(HYOSCYAMINE/MAALOX/LIDOCAINE VISCOUS)(1:3:1) PO (00:30)
[2017-11-01 00:36] LABS: BASO # 0.1 10^3/uL (0.0-0.2); BASO % 0.7 % (0.0-1.0); EOS # 0.1 10^3/uL (0.0-0.50); EOS % 1.4 % (0.0-3.0); HEMATOCRIT 37.6 % (36.0-47.0); HEMOGLOBIN 12.9 g/dl (12.0-16.0); IMMATURE GRANULOCYTE % 0.2 % (0-0); LYMPH # 2.3 10^3/uL (1.5-4.5); LYMPH % 27.3 % (24.0-44.0); MEAN CORPUSCULAR HEMOGLOBIN 30.3 pg (27.0-33.0); MEAN CORPUSCULAR HGB CONC 34.3 g/dl (32.0-36.5); MEAN CORPUSCULAR VOLUME 88.3 fl (80.0-96.0); MONO # 0.4 10^3/uL (0.0-0.8); NEUTROPHILS # 5.5 10^3/uL (1.8-7.7); NEUTROPHILS % 65.4 % (36.0-66.0); PLATELET COUNT, AUTOMATED 336 10^3/uL (150-450); RED BLOOD COUNT 4.26 10^6/uL (4.00-5.40); WHITE BLOOD COUNT 8.4 10^3/uL (4.0-10.0)
[2017-11-01] MEDS: MORPHINE 4 MG/ML 1ML SYRINGE IV (00:38)
[2017-11-01 00:53] LABS: CONTROL LINE HCG INT CTR LINE PRESENT; HCG, SERUM QUALITATIVE NEGATIVE (NEGATIVE)
[2017-11-01 01:02] LABS: ALBUMIN 3.4 GM/DL (3.2-5.2); ALBUMIN/GLOBULIN RATIO 0.85 (1.00-1.93); ALKALINE PHOSPHATASE 71 U/L (45-117); ALT/SGPT 17 U/L (12-78); ANION GAP 5 MEQ/L (8-16); AST/SGOT 10 U/L (7-37); BILIRUBIN,DIRECT 0.1 MG/DL (0.0-0.2); BILIRUBIN,TOTAL 0.7 MG/DL (0.2-1.0); BLOOD UREA NITROGEN 11 MG/DL (7-18); CALCIUM LEVEL 8.5 MG/DL (8.5-10.1); CARBON DIOXIDE LEVEL 28 MEQ/L (21-32); CHLORIDE LEVEL 108 MEQ/L (98-107); CREATININE FOR GFR 0.65 MG/DL (0.55-1.02); GLOMERULAR FILTRATION RATE > 60.0 (>60); GLUCOSE, FASTING 75 MG/DL (70-105); LIPASE 112 U/L (73-393); POTASSIUM SERUM 3.6 MEQ/L (3.5-5.1); SODIUM LEVEL 141 MEQ/L (136-145); TOTAL PROTEIN 7.4 GM/DL (6.4-8.2)
[2017-11-01] MEDS: FAMOTIDINE 20 MG TAB PO (03:15)
[2017-11-01] MEDS: SUCRALFATE 1 GM TAB PO (03:15)
== END 2017-11-01 03:31 | disposition home or self-care (01) ==
LOC: M ED 11-01 03:31
DX: K80.50 Calculus of bile duct without cholangitis or cholecystitis without obstruction (principal); K21.9 Gastro-esophageal reflux disease without esophagitis; Z87.19 Personal history of other diseases of the digestive system; Z79.899 Other long term (current) drug therapy; Z88.0 Allergy status to penicillin
CPT/HCPCS: 76705

== ENCOUNTER → 2017-12-01 | Outpatient (CLI) | payer OTHER ==
[~2017-12-01] MED LIST changes: -ALBU17IN INH; -CEFT250S PO; +E-Z-GAS II EFFERVESCENT PACKET (SODIUM BICARB./CITRIC ACID/SIMETHICONE) As Ordered; +E-Z-HD 98% w/w 340GM SUSP BTL As Ordered; +E-Z-PAQUE 96% w/w SUSP 176GM BTL As Ordered; -FLON1SPR; -LEVO50TA5 PO; -LOMO2.5T PO; -MUCI600T37 PO; -NAPR500T PO; -PRIL20CA9 PO; -SUDA30TA PO; -TYLE325T5 PO
== END ==
LOC: M RAD 08:10
DX: K21.9 Gastro-esophageal reflux disease without esophagitis (principal)
CPT/HCPCS: 74241

== ENCOUNTER → 2017-12-08 | Outpatient (REF) | payer OTHER ==
[2017-12-08 12:48] LABS: FREE T4 1.07 NG/DL (0.76-1.46)
== END ==
LOC: M SFHCPLAZ 08:53
DX: E03.9 Hypothyroidism, unspecified (principal); E55.9 Vitamin D deficiency, unspecified